=== PATIENT | female | born 1980 | race African-American/Black ===

== ENCOUNTER 2016-11-06 08:25 | Emergency (ER) | payer OTHER ==
[~2016-11-06] VITALS: Ht 175.3 cm; Wt 122.8 kg
[2016-11-06] MEDS ORDERED: ONDANSETRON 2MG/ML, 2ML ONE (09:22)
[2016-11-06] MEDS ORDERED: FAMOTIDINE 20 MG/2 ML ONE (09:22)
[2016-11-06] MEDS ORDERED: FAMOTIDINE 20 MG/2 ML IVP ONE (09:30)
[2016-11-06] MEDS ORDERED: SODIUM CHLORIDE 0.9% 1,000ML IVBOLUS ONE (09:30)
[2016-11-06] MEDS ORDERED: ONDANSETRON 2MG/ML, 2ML IVPush ONE (09:30)
[2016-11-06] MEDS ORDERED: SODIUM CHLORIDE FLUSH 10ML SYR IVF ONE (09:30)
[2016-11-06] MEDS ORDERED: AMLO10TA2 PO (09:41)
[2016-11-06] MEDS ORDERED: CARV-39 PO (09:41)
[2016-11-06] MEDS ORDERED: MEDR10TA PO (09:41)
[2016-11-06 09:51] LABS: HEMATOCRIT 40.2 % (34.6-47.8); HEMOGLOBIN 13.5 g/dL (11.7-16.4); WHITE BLOOD COUNT 7.8 x10^3/uL (3.4-10)
[2016-11-06 09:55] LABS: ASPARTATE AMINO TRANSFERASE 17 U/L (15-37); BLOOD UREA NITROGEN 7 mg/dL (7-18)
[2016-11-06] MEDS ORDERED: METOCLOPRAMIDE 5 MG/ML, 2ML ONE (10:49)
[2016-11-06] MEDS ORDERED: METOCLOPRAMIDE 5 MG/ML, 2ML IVPush ONE (11:30)
[2016-11-06 11:59] VITALS: BP 136/84
== END 2016-11-06 12:08 | disposition home or self-care (01) ==
LOC: ED 11:50
DX: R11.2 Nausea with vomiting, unspecified (principal); T40.4X5A Adverse effect of other synthetic narcotics, initial encounter; I10 Essential (primary) hypertension; Y92.89 Other specified places as the place of occurrence of the external cause
CPT/HCPCS: 36415; 80053; 81001; 83690; 84703; 85025; 87086; 96361; 96374; 96375; 99285; J2405; J2765; J7030; S0028

== ENCOUNTER 2016-11-10 10:42 | Emergency (ER) | payer OTHER ==
[~2016-11-10] VITALS: Ht 175.3 cm; Wt 123.7 kg
[~2016-11-10 10:42] MED LIST: AMLO10TA2 PO; CARV-39 PO; MEDR10TA PO
[2016-11-10] MEDS ORDERED: KETOROLAC 30 MG/1 ML ONE (11:28)
[2016-11-10] MEDS ORDERED: METOCLOPRAMIDE 5 MG/ML, 2ML ONE (11:28)
[2016-11-10] MEDS ORDERED: SODIUM CHLORIDE 0.9% 1,000ML IVBOLUS ONE (11:30)
[2016-11-10] MEDS ORDERED: KETOROLAC 30 MG/1 ML IVPush ONE (11:30)
[2016-11-10] MEDS ORDERED: SODIUM CHLORIDE FLUSH 10ML SYR IVF ONE (11:30)
[2016-11-10] MEDS ORDERED: METOCLOPRAMIDE 5 MG/ML, 2ML IVPush ONE (11:30)
[2016-11-10 11:47] LABS: HEMATOCRIT 40.1 % (34.6-47.8); HEMOGLOBIN 13.3 g/dL (11.7-16.4); WHITE BLOOD COUNT 6.9 x10^3/uL (3.4-10)
[2016-11-10 11:54] LABS: BLOOD UREA NITROGEN 6 mg/dL (7-18)
[2016-11-10 12:31] VITALS: BP 130/86
== END 2016-11-10 12:54 | disposition home or self-care (01) ==
LOC: ED 11:56
DX: G44.219 Episodic tension-type headache, not intractable (principal); I10 Essential (primary) hypertension; M62.838 Other muscle spasm
CPT/HCPCS: 36415; 80048; 82040; 85025; 93005; 96361; 96374; 96375; 99285; J1885; J2765; J7030

== ENCOUNTER 2016-12-07 13:50 | Emergency (ER) | payer OTHER ==
[~2016-12-07] VITALS: Ht 175.3 cm; Wt 112.8 kg
[2016-12-07] MEDS ORDERED: ONDANSETRON 2MG/ML, 2ML IVPush ONE (15:00)
[2016-12-07] MEDS ORDERED: SODIUM CHLORIDE 0.9% 1,000ML IVBOLUS ONE (15:00)
[2016-12-07 15:02] LABS: HEMATOCRIT 40.8 % (34.6-47.8); HEMOGLOBIN 13.6 g/dL (11.7-16.4)
[2016-12-07 15:13] LABS: ASPARTATE AMINO TRANSFERASE 7 U/L (15-37); BLOOD UREA NITROGEN 9 mg/dL (7-18)
[2016-12-07] MEDS ORDERED: ONDANSETRON 2MG/ML, 2ML ONE (15:44)
[2016-12-07] MEDS ORDERED: METOCLOPRAMIDE 5 MG/ML, 2ML IVPush ONE (16:00)
[2016-12-07] MEDS ORDERED: SODIUM CHLORIDE FLUSH 10ML SYR IVF ONE (16:00)
[2016-12-07] MEDS ORDERED: GABA300C10 PO (16:14)
[2016-12-07] MEDS ORDERED: TOPI25TA32 PO (16:15)
[2016-12-07] MEDS ORDERED: TOPI50TA35 PO (16:15)
[2016-12-07] MEDS ORDERED: MIDAZOLAM 1 MG/ML, 2ML IVPush ONE (16:30)
[2016-12-07] MEDS ORDERED: MIDAZOLAM 1 MG/ML, 5ML ONE (16:32)
[2016-12-07 18:19] VITALS: BP 126/76
== END 2016-12-07 18:55 | disposition home or self-care (01) ==
LOC: ED 16:30
DX: G97.1 Other reaction to spinal and lumbar puncture (principal); R51 Headache; Y84.4 Aspiration of fluid as the cause of abnormal reaction of the patient, or of later complication, without mention of misadventure at the time of the procedure
CPT/HCPCS: 36415; 80053; 83690; 84703; 85025; 96361; 96374; 96375; 99285; J2250; J2405; J7030